=== PATIENT | male | born 1975 | race African-American/Black ===

== ENCOUNTER 2018-07-21 23:39 | Emergency (ER) | payer MEDICARE, OTHER ==
[2018-07-22] MEDS: HYDROCODONE/APAP (5/325) TAB PO (03:41)
[2018-07-22] MEDS: KETOROLAC 30 MG INJ IM (03:42)
== END 2018-07-22 05:17 | disposition home or self-care (01) ==
LOC: FTE 23:39
DX: M54.42 Lumbago with sciatica, left side (principal); I10 Essential (primary) hypertension; I50.9 Heart failure, unspecified; F17.210 Nicotine dependence, cigarettes, uncomplicated
CPT/HCPCS: 96372; 99284-25